=== PATIENT | male | born 1995 | race Caucasian/White ===

== ENCOUNTER 2022-07-22 19:17 | Emergency (ER) | payer SELFPAY ==
[2022-07-22 19:36] VITALS: BP 144/73; PULSE 77; RESP 18; TEMP 36.5; O2SAT 98
--- NOTE | 2022-07-22 20:30 | DI.CT_ITS ---
Exam(s) CT ABDOMEN PELVIS W EXAM: CT ABDOMEN PELVIS W CLINICAL HISTORY: upper abdominal pain, diarrhea. TECHNIQUE: Imaging Protocol: Axial computed tomography images with coronal and sagittal reformatted images were created and reviewed CONTRAST MATERIAL: Intravenous: Omnipaque 100cc Oral: None COMPARISON: No exams were available for comparison FINDINGS: VISUALIZED LUNG BASES: No nodules nor pleural effusions evident. Minimal increased markings in the p osterior basal segment left lower lobe. ABDOMEN: There is no ascites. LIVER: There are no focal hepatic lesions evident. No dilated intrahepatic ducts. GALLBLADDER/BILIARY: No obvious gallbladder pathology. CBD is not dilated. PANCREAS: No evidence of pancreatic mass nor dilatation of the pancreatic duct. SPLEEN: Spleen size upper normal. No splenic lesions. Splenic and portal veins are patent. ADRENALS: There are no significant adrenal masses. KIDNEYS:No cysts evident. No solid renal masses. No calculi nor hydronephrosis.. ABDOMINAL AORTA: Abdominal aorta is not enlarged. LYMPH NODES:There are multiple slightly prominent lymph nodes in the mesentery, ranging up to 1.8 by 1.0 cm size. There is no thickening of small bowel loops. ABDOMINAL WALL: No evidence of significant anterior abdominal wall nor inguinal hernia. GI: There is no evidence of bowel obstruction, free air, nor abscess. Fluid material is seen in the ascending-right colon. There does not appear to be prominent fecal mat erial throughout the colon. PELVIS: GI: No evidence of appendicitis.No evidence of sigmoid diverticulitis. LYMPH NODES: No adenopathy around the aortic bifurcation nor along the iliac chains and there is no i nguinal adenopathy. REPRODUCTIVE: Prostate size normal. Seminal vesicles unremarkable. URINARY BLADDER: No calculi nor obvious masses evident OSSEOUS: No significant osseous lesions. No fractures. Some aside joints unremarkable. IMPRESSION: 1. No evidence of appendicitis, diverticulitis, nor ascites. However, there are numerous slightly en larged lymph nodes throughout the mesentery ranging up to 18 x 10 millimeter size. Spleen size is up per normal. 2. Appropriate follow-up recommended. 3. Signature 4. RADIATION DOSE DELIVERED: 1,116.54mGy.cm Total DLP DATA REPOSITORY: All CT scans at this facility are submitted to the National Radiology Data Registry (NRDR) Dose Index Registry (DIR) with the [employer] ([employer]). RADIATION OPTIMIZATION: All CT scans at this facility use at least one of these dose optimization te chniques: automated exposure control; mA and/or kV adjustment per patient size (includes targeted exa ms where dose is matched to clinical indication); or iterative reconstruction.
--- NOTE | 2022-07-22 20:44 | W.ED.GENAD ---
Discharge Plan Disposition Patient Disposition: HOME Condition: Improving Discharge Details Clinical Impression: Diarrhea Primary Care Provider: Unknown,Unknown ED Provider: Antonio Jenkins Home Meds and New Rx's Prescriptions: New azithromycin 500 mg tablet 500 mg PO DAILY 2 Days Qty: 2 0RF Rx Instructions: start on day 2 of therapy Discharge Instructions Instructions: Acute Diarrhea (ED) Additional Instructions: Home to rest today. Continue bland diet. Small, frequent sips of fluids to maintain hydration. Take antibiotics once daily as prescribed. Return for any acute concern. Medical Decision Making 27-year-old male presents from home with 1 week of diarrhea. He was seen in [facility] had report of negative stool studies and unremarkable laboratories. Is been taking loperamide with minimal improvement. States that he started with nausea and vomiting approxi-1 week ago. Over the past few days has been able to eat and drink, eating often does provoke crampy upper abdominal pain and green watery diarrhea. No fevers. Arrives to the ER afebrile and well-appearing. He does have mild left abdominal tenderness. Differential diagnosis would include colitis, diverticulitis, pancreatitis. Patient had IV access established, screening labs obtained. He is given fluids and Bentyl. Labs are reassuring with white count of 7, hematocrit 40, platelets 341. Comprehensive metabolic panel notes a magnesium of 1.5 which is supplemented in the ER and AST of 21 with ALT of 67. Patient referred for imaging. CT reveals liquid stool within the colon suggesting diarrheal illness. No evidence for bowel inflammation. Numerous mildly enlarged mesenteric lymph nodes suggesting mild mesenteric adenitis. Patient is improved. Discussed with him our findings. Will offer treatment with 3 days of azithromycin. He will follow-up with Dr. Giraldo for recheck. Lab Data Lab results reviewed: Yes I reviewed the patient's lab results. Labs: Laboratory Results - last 24 hr 07/22/22 07/22/22 20:50 20:50 WBC 7.30 RBC 4.77 Hgb 14.7 Hct 40.6 MCV 85 MCH 30.8 MCHC 36.2 H RDW 12.0 Plt Count 341 MPV 9.9 Immature Gran % See Differential Neutrophils % 42.0 Lymphocytes % 42.0 Atypical Lymphs % 4 Monocytes % 9.0 Eosinophils % 3.0 Basophils % 0.0 Nucleated RBC % 0.0 Absolute Neutrophils 3.07 Absolute Lymphocytes 3.36 Absolute Monocytes 0.66 Absolute Eosinophils 0.22 Absolute Basophils 0.00 RBC Morphology Normal Sodium 143 Potassium 3.6 Chloride 107 Carbon Dioxide 27.2 Anion Gap 8.8 BUN 11 Creatinine 0.9 Estimated GFR/1.73 m2 >= 60.00 Glucose 96 Calcium 8.5 Magnesium 1.5 L Total Bilirubin 0.3 AST 21 ALT 67 H Alkaline Phosphatase 71 Total Protein 7.0 Albumin 3.4 Lipase 64 HPI General Mode of arrival: ambulatory. Date/Time Provider Initiated Documentation: 07/22/22 20:09. Limitations to Documentation: no limitations. Information obtained by: patient. History of Present Illness 27 year old M presents to the emergency department with the chief complaint of Abdominal pain and diarrhea for 1 week, described as moderate, Quality is described as other (crampy), and is localized to the abdomen. Patient reports no radiation. Patient started experiencing this day(s) and it has been intermittent. No relieving factors improve symptom(s), No exacerbating factors reported . Patient notes weakness; denies loss of appetite and nausea/vomiting. Patient did receive the following treatments prior to arrival, other (loperamide) Related Data Home Medications Medication Instructions Recorded Confirmed azithromycin 500 mg tablet 500 mg PO DAILY 2 days #2 tabs 07/22/22 Previous Rx's Medication Instructions Recorded azithromycin 500 mg tablet 500 mg PO DAILY 2 days #2 tabs 07/22/22 Allergies Allergy/AdvReac Type Severity Reaction Status Date / Time No Known Allergies Allergy Unverified 07/22/22 20:35 General Stated Complaint: Abd Prob JEMMA: 3 PFSH All Active Problems (Updated 07/22/22 @ 23:24 by Antonio Jenkins MD) Diarrhea (Acute) Social History Smoking/Tobacco Use Status: Never Smoking risk assessment performed?: Yes Alcohol Intake: current Alcohol Intake frequency: 0-2 drinks per day Drug use: Never Substance use type: does not use Do you feel safe at home: Yes Do you feel safe in your relationship?: Yes Exam Narrative Exam Narrative: GEN: awake, alert, oriented 3. Pleasant, well groomed, interactive. HEAD: Normocephalic, atraumatic ENT: Mucous membranes moist, oropharynx unremarkable, External ear exam unremarkable EYES: PERRL, EOMI NECK: Full ROM, no MARA, no menigismus CHEST/RESP: Nontender, clear to auscultation bilateral, no wheeze/rhonchi/rales CARDIOVASCULAR: RRR, no murmur, rub anisha. 2+ Rad pulse bilateral ABDOMEN: Soft, minimal left lateral abdominal tenderness, no mass. +Bowel sounds EXT: Full ROM, no edema, no rash Neuro: Grossly normal neurologic exam, conversant, interactive. Psych: Speech fluent, thoughts congruent, affect normal Course Vital Signs Vital signs: Vital Signs Temperature 36.5 C 07/22/22 19:36 Pulse 77 07/22/22 19:36 Respiratory Rate 18 07/22/22 19:36 Blood Pressure 144/73 H 07/22/22 19:36 Pulse Oximetry 98 07/22/22 19:36 Temperature 36.5 C 07/22/22 19:36 Temperature Source Temporal Artery Scan 07/22/22 19:36 Pulse 77 07/22/22 19:36 Respiratory Rate 18 07/22/22 19:36 Respiratory Effort Non-Labored 07/22/22 20:31 Blood Pressure 144/73 H 07/22/22 19:36 Blood Pressure Position Sitting 07/22/22 19:36 Pulse Oximetry 98 07/22/22 19:36 Pain Level 7 07/22/22 19:36
[2022-07-22] MEDS: Normal Saline 1,000 ML 1000 ML IV (20:55)
[2022-07-22] MEDS: Dicyclomine 20 MG TAB PO (21:01)
[2022-07-22 21:04] LABS: HCT 40.6 % (40.0-50.0); HGB 14.7 g/dL (13.5-17.5); MCH 30.8 pg (27.0-33.0); MCHC 36.2 % (32.0-36.0); MCV 85 fL (80-95); MPV 9.9 fL (8.0-11.0); Platelet Count 341 10^3/uL (130-400); RBC 4.77 10^6/uL (4.36-5.78); RDW-SD 37.2 fL
[2022-07-22 21:18] LABS: ALT 67 U/L (16-63); AST 21 U/L (15-37); Albumin 3.4 g/dL (3.4-5.0); Alkaline Phosphatase 71 U/L (46-116); Anion Gap 8.8 mmol/L (3-11); BUN 11 mg/dL (7-18); Bilirubin, Total 0.3 mg/dL (0.2-1.0); CO2 27.2 mmol/L (21.0-32.0); CREATININE 0.9 mg/dL (0.70-1.30); Calcium 8.5 mg/dL (8.5-10.1); Chloride 107 mmol/L (98-107); Glucose 96 mg/dL (74-106); Lipase 64 U/L (73-393); Magnesium 1.5 mg/dL (1.8-2.4); Potassium 3.6 mmol/L (3.5-5.1); Sodium 143 mmol/L (136-145)
[2022-07-22 21:22] LABS: Absolute Lymphocyte Count 3.36 10^3/uL (1.2-3.4); Absolute Monocyte Count 0.66 10^3/uL (0.1-0.8); Absolute Neutrophil Count 3.07 10^3/uL (1.2-6.7); Atypical Lymphocytes % 4
[2022-07-22 21:23] LABS: Absolute Eosinophil Count 0.22 10^3/uL (0.0-0.7); Diff Comment Manual Differential; RBC Morphology Normal
[2022-07-22] MEDS: MAGNESIUM SULFATE 1 GM/100 ML BAG IVPB (21:32)
[2022-07-22] MEDS: Omnipaque 350 MG/ML 100 ML BTL IJ (22:35)
--- NOTE | 2022-07-22 23:13 | DI.VRAD_ITS ---
PROCEDURE INFORMATION: Exam: CT Abdomen And Pelvis With Contrast Exam date and time: 07/22/2022 10:36 PM Age: 27 years old Clinical indication: Other: Upper abdominal pain, diarrhea TECHNIQUE: Imaging protocol: Computed tomography of the abdomen and pelvis with contrast. Radiation optimization: All CT scans at this facility use at least one of these dose optimization techniques: automated exposure control; mA and/or kV adjustment per patient size (includes targeted exams where dose is matched to clinical indication); or iterative reconstruction. Contrast material: OMNIPAQUE 350; Contrast volume: 100 ml; Contrast route: INTRAVENOUS (IV); Other contrast: Oral, gastro, 25; COMPARISON: No relevant prior studies available. FINDINGS: Lungs: There is minimal atelectasis/scarring at the posterior left lung base. Liver: Normal. No mass. Gallbladder and bile ducts: Normal. No calcified stones. No ductal dilation. Pancreas: The pancreas is mildly atrophic, but otherwise appears unremarkable without focal lesion or evidence of acute inflammation. Spleen: Normal. No splenomegaly. Adrenal glands: Normal. No mass. Kidneys and ureters: No renal or ureteral stones are identified. There is no hydronephrosis or hydroureter. Stomach and bowel: There are regions of mild fatty proliferation within the submucosa of the terminal ileum, which is suggestive of sequela of prior inflammation. No active small or large bowel inflammation is identified. There is liquid stool within the proximal colon to the level of the proximal transverse colon as well as small amount of liquid stool within the rectum. There is no evidence for bowel obstruction. Appendix: The appendix is well visualized and appears normal. Intraperitoneal space: There is no free intraperitoneal air. There is no evidence of free intraperitoneal fluid. Vasculature: Unremarkable. No abdominal aortic aneurysm. Lymph nodes: There are multiple mildly enlarged small bowel mesenteric lymph nodes measuring up to 1.2 cm. Urinary bladder: No bladder stones are identified. Reproductive: Unremarkable as visualized. Bones/joints: Unremarkable. No acute fracture. Soft tissues: Unremarkable. IMPRESSION: 1. Liquid stool within the colon, suggesting diarrheal illness. No clear evidence for active bowel inflammation. 2. Numerous mildly enlarged mesenteric lymph nodes, suggesting mild mesenteric adenitis. Dictated and Authenticated by: Gunnar Rondon MD. Ordering:FUNMILAYO Alvarez MD
[2022-07-22 23:25] VITALS: BP 132/74; PULSE 68; RESP 18; TEMP 36.3; O2SAT 98
[2022-07-22] MEDS: Azithromycin 250 MG TAB 500 MG PO (23:30)
== END 2022-07-22 23:31 | disposition home or self-care (01) ==
PROVIDERS: Emergency Provider Emergency Medicine
DX: R19.7 Diarrhea, unspecified (principal); R10.12 Left upper quadrant pain; R11.2 Nausea with vomiting, unspecified
CPT/HCPCS: 80053; 83690; 96361; 96365; 99285; 74177; 83735; 85025; 99284; J3475; J3490

== ENCOUNTER 2024-02-10 14:42 | Outpatient (REF) | payer OTHER, SELFPAY ==
[2024-02-10 20:11] LABS: ALT 137 U/L (16-63); AST 51 U/L (15-37); Albumin 3.9 g/dL (3.4-5.0); Alkaline Phosphatase 95 U/L (46-116); Anion Gap 9.1 mmol/L (3-11); BUN 17 mg/dL (7-18); Bilirubin, Total 0.5 mg/dL (0.2-1.0); CO2 27.9 mmol/L (21.0-32.0); Calcium 9.7 mg/dL (8.5-10.1); Calculated LDL 177 mg/dL (<100); Chloride 103 mmol/L (98-107); Cholesterol 240 mg/dL (<200); Estimated GFR 104.48 (mL/min/1.73m2); Glucose 96 mg/dL (74-106); HDL Cholesterol 38 mg/dL (40-60); Potassium 4.4 mmol/L (3.5-5.1); Sodium 140 mmol/L (136-145); Total Protein 8.1 g/dL (6.4-8.2); Triglyceride 127 mg/dL (<150)
[2024-02-10 20:36] LABS: Hemoglobin A1C 5.4 % (<5.7)
== END 2024-02-10 14:43 | disposition home or self-care (01) ==
LOC: NCHCN 14:42
PROVIDERS: Referring Provider Nurse Practitioner Family; Visit Provider Nurse Practitioner Family
DX: E66.01 Morbid (severe) obesity due to excess calories (principal); Z68.42 Body mass index [BMI] 45.0-49.9, adult; R79.89 Other specified abnormal findings of blood chemistry; Z13.220 Encounter for screening for lipoid disorders; Z13.1 Encounter for screening for diabetes mellitus
CPT/HCPCS: 80053; 80061; 83036